=== PATIENT | female | born 1990 | race Caucasian/White ===

== ENCOUNTER → 2019-06-26 | Outpatient (CLI) | payer OTHER ==
[~2019-06-26] MED LIST: IBUP80TA PO; MAPA500T17 PO; MAPA500T2 PO; PRENPAK PO
[2019-06-26 18:15] LABS: APPEARANCE, URINE CLOUDY (CLEAR); BACTERIA, URINE AUTO 2+ (NEGATIVE); BILIRUBIN, URINE AUTO NEGATIVE (NEGATIVE); BLOOD, URINE BLOOD 3+ (NEGATIVE); COLOR, URINE YELLOW (YELLOW); GLUCOSE, URINE (UA) AUTO NEGATIVE (NEGATIVE); KETONE, URINE AUTO NEGATIVE (NEGATIVE); LEUKOCYTE ESTERASE, URINE AUTO TRACE (NEGATIVE); MUCUS, URINE SMALL (NEGATIVE); NITRITE, URINE AUTO POSITIVE (NEGATIVE); PROTEIN, URINE AUTO NEGATIVE (NEGATIVE); RBC, URINE AUTO 7 /HPF (0-3); SQUAMOUS EPITHELIAL CELL UR AU 43 /HPF (0-6); UROBILINOGEN, URINE AUTO 0.2 mg/dL (0.0-2.0); WBC, URINE AUTO 13 /HPF (0-3)
--- NOTE | 2019-06-27 01:59 | REPPI ---
Clinical: Pain and swelling. Technique: AP, lateral, bilateral oblique views of the right foot. Findings: No acute fracture dislocation. Skeletal structures, joint spaces, and surrounding soft tissues are age-appropriate. No overt arthritic changes. Surrounding soft tissues are unremarkable. Impression: Normal right foot radiographs. Electronically Signed by Prasanna Stoddard MD 06/27/2019 01:51 A
== END ==
LOC: M PLAIMG 13:55
PROVIDERS: ATTEND Family Medicine
DX: M25.474 Effusion, right foot (principal); M79.671 Pain in right foot

== ENCOUNTER 2024-02-20 11:14 | Emergency (ER) | payer OTHER ==
[~2024-02-20] VITALS: Ht 162.6 cm; Wt 81.8 kg
[2024-02-20 13:05] LABS: HCG, SERUM QUALITATIVE NEGATIVE (NEGATIVE)
[2024-02-20] MEDS: IBUPROFEN 600MG TAB PO ONE (14:46)
[2024-02-20] MEDS: LIDOCAINE 5% (LIDODERM) PATCH TD ONE (14:46)
[2024-02-20] MEDS ORDERED: LIDO5DIS41 TOP (14:53)
[2024-02-20 14:59] VITALS: BP 117/65; TEMP 96.8; O2SAT 99
== END 2024-02-20 15:00 | disposition home or self-care (01) ==
LOC: M ED 11:14 → EDBD 11:14 → M ED 15:00
DX: S46.012A Strain of muscle(s) and tendon(s) of the rotator cuff of left shoulder, initial encounter (principal); S13.4XXA Sprain of ligaments of cervical spine, initial encounter; V43.62XA Car passenger injured in collision with other type car in traffic accident, initial encounter; F17.200 Nicotine dependence, unspecified, uncomplicated; F12.10 Cannabis abuse, uncomplicated; Z79.1 Long term (current) use of non-steroidal anti-inflammatories (NSAID); Z79.899 Other long term (current) drug therapy; Y92.410 Unspecified street and highway as the place of occurrence of the external cause; Y93.89 Activity, other specified; Y99.9 Unspecified external cause status

== ENCOUNTER 2025-05-15 11:14 | Emergency (ER) | payer OTHER ==
[~2025-05-15] VITALS: Ht 162.6 cm; Wt 75.4 kg
[~2025-05-15 11:14] MED LIST changes: +LIDO1ADH93 TOP
[2025-05-15 11:16] VITALS: BP 133/65; TEMP 99; O2SAT 99
[2025-05-15 13:20] LABS: KETONE, URINE AUTO RFX NEGATIVE (NEGATIVE); LEUKOCYTE ESTERASE UR AUTO RFX NEGATIVE (NEGATIVE); NITRITE, URINE AUTO RFX NEGATIVE (NEGATIVE); RBC, URINE AUTO RFX 1 /HPF (0-3); SQUAM EPITHELIAL CELL UR AURFX 1 /HPF (0-6); WBC, URINE AUTO RFX 0 /HPF (0-3)
== END 2025-05-15 13:16 | disposition left against medical advice (07) ==
LOC: M ED 11:14
DX: O26.891 Other specified pregnancy related conditions, first trimester (principal); R10.9 Unspecified abdominal pain; O34.81 Maternal care for other abnormalities of pelvic organs, first trimester; N83.292 Other ovarian cyst, left side; F17.200 Nicotine dependence, unspecified, uncomplicated; Z3A.01 Less than 8 weeks gestation of pregnancy; Z53.9 Procedure and treatment not carried out, unspecified reason